=== PATIENT | male | born 1975 | race Caucasian/White ===

== ENCOUNTER 2016-07-23 16:46 | Emergency (ER) | payer BC ==
[2016-07-23 17:41] VITALS: BP 148/70
--- NOTE | 2016-07-23 18:19 | UC ---
Throat Pain/Nasal Timothy HPI - HPI Summary HPI Summary: complaint of nasal congestion cough and fever that started yesterday muscle achiness in entire body intermittent headaches intermittent ear pain denies sore throat denies N/V/D took some dayquil and nyquil without relief - History of Current Complaint Chief Complaint: UCRespiratory Stated Complaint: COUGH,COLD,HEADACHE Time Seen by Provider: 07/23/16 18:13 Hx Obtained From: Patient - Allergies/Home Medications Allergies/Adverse Reactions: Allergies Allergy/AdvReac Type Severity Reaction Status Date / Time No Known Allergies Allergy Verified 07/23/16 17:41 Home Medications: Home Medications Chlorpheniramine-Phenylephrine [[place] Plus Cold] 1 tab PO PRN 07/23/16 [ History] PMH/Surg Hx/FS Hx/Imm Hx Previously Healthy: Yes Endocrine History Of: Reports: Diabetes Denies: Thyroid Disease Cardiovascular History Of: Reports: Hypertension Denies: Cardiac Disorders Respiratory History Of: Reports: Asthma Denies: COPD GI/ History Of: Denies: Ulcer - Surgical History Surgical History: Yes Surgery Procedure, Year, and Place: Left Knee - Family History Known Family History: Negative: Cardiac Disease, Hypertension, Diabetes - Social History Occupation: Employed Full-time Lives: With Family Alcohol Use: Occasionally Substance Use Type: None Smoking Status (MU): Current Some Day Smoker Type: Cigarettes Amount Used/How Often: 1-1.5 PPD Length of Time of Smoking/Using Tobacco: 10 years Have You Smoked in the Last Year: Yes When Did the Patient Quit Smoking/Using Tobacco: 2 months Cessation Counseling: Patient Advised to Stop Review of Systems Constitutional: Fever Skin: Negative Eyes: Negative ENT: Ear Ache, Nasal Discharge Respiratory: Cough Cardiovascular: Negative Gastrointestinal: Negative Genitourinary: Negative Motor: Negative Neurovascular: Negative Musculoskeletal: Myalgia Neurological: Headache Psychological: Negative All Other Systems Reviewed And Are Negative: Yes Physical Exam Triage Information Reviewed: Yes Appearance: No Pain Distress, Well-Nourished, Ill-Appearing, Obese Vital Signs: Initial Vital Signs Temp 101.3 F 07/23/16 17:38 Pulse 115 07/23/16 17:38 Resp 20 07/23/16 17:38 BP 148/70 07/23/16 17:38 Pulse Ox 96 07/23/16 17:38 Vital Signs Reviewed: Yes Eyes: Positive: Conjunctiva Clear ENT: Positive: Pharyngeal erythema, Nasal congestion, Nasal drainage, TMs normal. Negative: Tonsillar swelling Neck: Positive: No Lymphadenopathy Respiratory: Positive: Lungs clear, Normal breath sounds, No respiratory distress Cardiovascular: Positive: RRR, No Murmur, Pulses Normal Abdomen Description: Positive: Nontender, No Organomegaly, Soft Bowel Sounds: Positive: Present Musculoskeletal: Positive: No Edema Neurological: Positive: Alert Psychological Exam: Normal Skin Exam: Normal Throat Pain/Nasal Course/Dx - Differential Dx/Diagnosis Differential Diagnosis/HQI/PQRI: Influenza, URI, Other - asthma exacerbation- viral illness Provider Diagnoses: influenza Discharge - Discharge Plan Condition: Stable Disposition: HOME Prescriptions: Albuterol HFA INHALER* [Ventolin HFA Inhaler*] 2 puff INH Q4H PRN #1 mdi PRN Reason: Wheezing Oseltamivir CAP* [Tamiflu CAP*] 75 mg PO BID #10 cap Patient Education Materials: Influenza (ED) Referrals: Fabian Bro MD [Primary Care Provider] - Additional Instructions: Your blood pressure is elevated. Please contact your primary care provider within 1 day -4 weeks for further evaluation. TREATING THE FLU (Influenza) What is the Flu? Influenza, or "flu," is an infection of the breathing tubes and lungs. Flu happens mostly in late fall, winter, or early spring. It is very easily spread from one person to another by coughing and sneezing. The flu affects people of all ages. Symptoms Might Include: Stuffed up or runny nose Cough which may be worse at night that lasts for one to two weeks Fever especially the first 2 days and which may go up and down Headache and muscle aches Mild sore throat Poor appetite Tiredness Influenza (Flu) Vaccine Much of the illness and caused by influenza can be prevented by annual flu vaccination. It is especially recommended for people who are at high risk. Those at higher risk include all people aged 65 years or older and people of any age with chronic diseases of the heart, lung or kidneys, diabetes, immunosuppression, or severe forms of anemia. Other high-risk groups are, women who will be more than 3 months during the flu season, and children. Treatment Recommendations: Take acetaminophen (Tylenol, etc.) for aches and fever. Do not ever give aspirin to children. Drink lots of fluids. Use a cool-mist humidifier night and day if it helps you. Keep room at a comfortable temperature for you. Do not overheat the room. Do not overdress. Do not smoke. Get as much rest as you can. Call Your Doctor or Return Here IF: You have a fever that lasts for more than three days. You have trouble breathing. You begin to cough up green, yellow, or red mucous. Your cough gets worse or you have chest pain with coughing or deep breathing. You start to have any other symptoms that worry you.
[2016-07-23] MEDS ORDERED: Acetaminophen TAB* 325 MG PO ONE (18:20)
== END 2016-07-23 19:06 | disposition home or self-care (01) ==
LOC: UCEAST 16:46
DX: J11.1 Influenza due to unidentified influenza virus with other respiratory manifestations (principal); E11.9 Type 2 diabetes mellitus without complications; I10 Essential (primary) hypertension; J45.909 Unspecified asthma, uncomplicated; Z87.891 Personal history of nicotine dependence
CPT/HCPCS: 87502; 99212; A9270-GY; G0463

== ENCOUNTER 2016-09-01 19:55 | Emergency (ER) | payer BC ==
[2016-09-01 20:51] VITALS: BP 140/95
[2016-09-01] MEDS ORDERED: Cephalexin CAP* 500 MG PO ONE (21:10)
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
== END 2016-09-01 21:23 | disposition home or self-care (01) ==
LOC: UCEAST 19:55
DX: L03.116 Cellulitis of left lower limb (principal); E11.9 Type 2 diabetes mellitus without complications; I10 Essential (primary) hypertension; J45.909 Unspecified asthma, uncomplicated; Z72.0 Tobacco use
CPT/HCPCS: 87070; 87077; 87186; 87205; 99212; A9270-GY; G0463

== ENCOUNTER 2017-05-25 13:29 | Emergency (ER) | payer BC ==
[2017-05-25 14:12] VITALS: BP 141/96
--- NOTE | 2017-05-25 14:19 | UC ---
Respiratory Complaint HPI - HPI Summary HPI Summary: Pt presents with 1 week of sinus pain/pressure/congestion, post nasal drip, sore throat, and dry persistent cough. Also says he feels feverish and warm, but has not taken his temperature. He has been taking OTC cold and flu medicine with no relief. Tells me that his just had a pacemaker inserted and he doesn't want to be sick around her. Denies chills, SOB, chest pain, abdominal pain, n/v/d/c. - History of Current Complaint Hx Obtained From: Patient Onset/Duration: Gradual Onset Timing: Constant Severity Initially: Mild Severity Currently: Mild Pain Intensity: 2 Pain Scale Used: 0-10 Numeric Character: Cough: Nonproductive <Armin Acosta - Last Filed: 05/25/17 14:31> <Angela Dawson - Last Filed: 05/26/17 13:08> - History of Current Complaint Chief Complaint: UCGeneralIllness Stated Complaint: RESP ISSUE COUGH Time Seen by Provider: 05/25/17 14:19 - Allergies/Home Medications Allergies/Adverse Reactions: Allergies Allergy/AdvReac Type Severity Reaction Status Date / Time No Known Allergies Allergy Verified 05/25/17 14:03 PMH/Surg Hx/FS Hx/Imm Hx Endocrine History: Diabetes Cardiovascular History: Hypertension - Surgical History Surgical History: Yes Surgery Procedure, Year, and Place: Left Knee arthroscopy - Family History Known Family History: Negative: Cardiac Disease, Hypertension, Diabetes - Social History Occupation: Employed Full-time Lives: With Family Alcohol Use: Occasionally Substance Use Type: None Smoking Status (MU): Former Smoker Type: Cigarettes Amount Used/How Often: 1-1.5 PPD Length of Time of Smoking/Using Tobacco: 10 years Have You Smoked in the Last Year: Yes When Did the Patient Quit Smoking/Using Tobacco: 2 months <Armin Acosta - Last Filed: 05/25/17 14:31> Review of Systems Constitutional: Fever Skin: Negative Eyes: Negative ENT: Sore Throat, Nasal Discharge, Sinus Congestion, Sinus Pain/Tenderness Respiratory: Cough Cardiovascular: Negative Gastrointestinal: Negative Genitourinary: Negative Neurological: Negative Psychological: Negative All Other Systems Reviewed And Are Negative: Yes <Armin Acosta - Last Filed: 05/25/17 14:31> Physical Exam Triage Information Reviewed: Yes Appearance: Well-Appearing, No Pain Distress, Obese Vital Signs: Initial Vital Signs Temp 98.8 F 05/25/17 14:06 Pulse 103 05/25/17 14:06 Resp 16 05/25/17 14:06 BP 141/96 05/25/17 14:06 Pulse Ox 98 05/25/17 14:06 Vital Signs Reviewed: Yes Eyes: Positive: Conjunctiva Clear. Negative: Conjunctiva Inflamed, Discharge ENT: Positive: Hearing grossly normal, Pharynx normal, Nasal congestion, Nasal drainage, TMs normal, Sinus tenderness, Uvula midline. Negative: Pharyngeal erythema, TM bulging, TM dull, TM red, Tonsillar swelling, Tonsillar exudate, Hoarse voice Neck: Positive: Supple, No Lymphadenopathy, Other: - Mildly tender anterior Respiratory: Positive: Lungs clear, Normal breath sounds, No respiratory distress, No accessory muscle use Cardiovascular: Positive: RRR, No Murmur, Pulses Normal Neurological: Positive: Alert Psychological: Positive: Age Appropriate Behavior Skin: Negative: rashes <Armin Acosta - Last Filed: 05/25/17 14:31> Vital Signs: Initial Vital Signs Temp 98.8 F 05/25/17 14:06 Pulse 103 05/25/17 14:06 Resp 16 05/25/17 14:06 BP 141/96 05/25/17 14:06 Pulse Ox 98 05/25/17 14:06 <Angela Dawson - Last Filed: 05/26/17 13:08> Diagnostic Evaluation - Laboratory O2 Sat by Pulse Oximetry: 98 <Armin Acosta - Last Filed: 05/25/17 14:31> Respiratory Course/Dx - Course Course Of Treatment: Sinusitis. Bronchitis - Differential Dx/Diagnosis Provider Diagnoses: Sinusitis. Bronchitis <Armin Acosta - Last Filed: 05/25/17 14:31> Discharge <Armin Acosta - Last Filed: 05/25/17 14:31> <Angela Dawson - Last Filed: 05/26/17 13:08> - Discharge Plan Condition: Stable Disposition: HOME Prescriptions: Azithromycin TAB* [Zithromax TAB (Z-ARYA) 250 mg #6 tabs] 2 tab PO .TODAY, THEN 1 DAILY #1 arya Benzonatate CAP* [Tessalon 100 MG CAP*] 100 mg PO TID PRN #15 cap PRN Reason: Cough Patient Education Materials: Sinusitis (ED) Forms: *Work Release Referrals: Fabian Bro MD [Primary Care Provider] - Additional Instructions: If you develop a fever, shortness of breath, chest pain, new or worsening symptoms - please call your PCP or go to the ED. Your blood pressure was high at todays visit. Please see your primary provider within 4 weeks for recheck and re-evaluation. Attestation Statement User Type: Provider - I was available for consult. This patient was seen by the GEO. The patient was not presented to, seen by, or examined by me. Sulaiman <Angela Dawson - Last Filed: 05/26/17 13:08>
== END 2017-05-25 14:34 | disposition home or self-care (01) ==
LOC: UCEAST 13:29
DX: J32.9 Chronic sinusitis, unspecified (principal); J40 Bronchitis, not specified as acute or chronic; Z87.891 Personal history of nicotine dependence
CPT/HCPCS: 99212; G0463

== ENCOUNTER 2019-01-08 16:32 | Emergency (ER) | payer BC ==
[2019-01-08 17:10] VITALS: BP 158/102
--- NOTE | 2019-01-08 17:11 | UC ---
Throat Pain/Nasal Timothy HPI - HPI Summary HPI Summary: Patient is a 43yo male presenting with upper respiratory symptoms x4 days. Notes sinus congestion, PND, and cough. Cough is nonproductive. States that he is coughing so much he believes he "popped a rib." Insists on no xrays though, as he "cannot afford it." Patient notes wheezing but no SOB. Denies n/v/d. Denies headache, fever, and chills. He has taken OTC cough medications without relief. - History of Current Complaint Stated Complaint: URI Hx Obtained From: Patient Onset/Duration: Gradual Onset, Lasting Days Severity: Severe Pain Intensity: 10 Pain Scale Used: 0-10 Numeric Cough: Nonproductive Associated Signs & Symptoms: Positive: Wheezing, Nasal Discharge. Negative: Sinus Discomfort, Fever, Vomiting - Allergies/Home Medications Allergies/Adverse Reactions: Allergies Allergy/AdvReac Type Severity Reaction Status Date / Time No Known Allergies Allergy Verified 01/08/19 17:06 Home Medications: Home Medications Fluticasone NASAL SPRAY 50MCG* [Flonase NASAL SPRAY 50MCG*] 2 spray BOTH NARES DAILY 01/08/19 [History Confirmed 01/08/19] Oxymetazoline 0.05% NASAL SPR* [Afrin 0.05% NASAL SPRAY*] 1 spray NASAL Q12H PRN 01/08/19 [History Confirmed 01/08/19] PMH/Surg Hx/FS Hx/Imm Hx Endocrine History: Diabetes Cardiovascular History: Hypertension - Surgical History Surgical History: Yes Surgery Procedure, Year, and Place: Left Knee arthroscopy - Family History Known Family History: Negative: Cardiac Disease, Hypertension, Diabetes - Social History Alcohol Use: Occasionally Substance Use Type: None Smoking Status (MU): Current Some Day Smoker Type: Cigarettes Amount Used/How Often: 1 cig 2x/week Length of Time of Smoking/Using Tobacco: 10 years Have You Smoked in the Last Year: Yes When Did the Patient Quit Smoking/Using Tobacco: 2 months Review of Systems All Other Systems Reviewed And Are Negative: Yes Constitutional: Negative: Fever, Chills Skin: Positive: Negative Eyes: Positive: Negative ENT: Positive: Sore Throat, Nasal Discharge, Sinus Congestion. Negative: Ear Ache, Sinus Pain/Tenderness Respiratory: Positive: Cough. Negative: Shortness Of Breath Cardiovascular: Positive: Negative Gastrointestinal: Positive: Negative. Negative: Abdominal Pain, Vomiting, Diarrhea, Nausea Motor: Negative: Weakness Musculoskeletal: Negative: Myalgia Neurological: Negative: Headache Psychological: Positive: Negative Physical Exam Triage Information Reviewed: Yes Appearance: Well-Appearing, No Pain Distress, Well-Nourished Vital Signs: Initial Vital Signs Temp 98.9 F 01/08/19 17:07 Pulse 98 01/08/19 17:07 Resp 18 01/08/19 17:07 BP 158/102 01/08/19 17:07 Pulse Ox 96 01/08/19 17:07 Vital Signs Reviewed: Yes Eyes: Positive: Conjunctiva Clear. Negative: Discharge ENT: Positive: Hearing grossly normal, Pharyngeal erythema, Nasal drainage, TMs normal, Uvula midline. Negative: Nasal congestion, TM bulging, Tonsillar swelling, Tonsillar exudate, Sinus tenderness Neck exam: Normal Neck: Positive: Supple, Nontender, No Lymphadenopathy Respiratory: Positive: No respiratory distress, No accessory muscle use, Wheezing - mild expiratory wheezing noted of LLL. Negative: Respiratory distress, Decreased breath sounds, Crackles, Rhonchi, Stridor Cardiovascular Exam: Normal Cardiovascular: Positive: RRR. Negative: Tachycardia Neurological: Positive: Alert Psychological: Positive: Age Appropriate Behavior Throat Pain/Nasal Course/Dx - Course Course Of Treatment: Discussed with patient his elevated blood pressure today. 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 I stressed the importance of him doing so and he voiced understanding. The patient was concerned for a fractured rib but when offered an xray he refused because he does not want to pay for it. Patient agreed to try an inhaler to help relieve his respiratory symptoms. I discussed the likely viral etiology of his symptoms and told him he may continue to take OTC cough and cold medications as directed for symptomatic relief. Patient instructed to get plenty of rest and fluids. I also instructed the patient to return or follow up if his symptoms persist or worsen. Patient voiced understanding and agreed to the treatment plan. - Differential Dx/Diagnosis Provider Diagnosis: Upper respiratory infection, Acute bronchitis Discharge ED - Sign-Out/Discharge Documenting (check all that apply): Patient Departure All imaging exams completed and their final reports reviewed: No Studies - Discharge Plan Condition: Stable Disposition: HOME Prescriptions: Albuterol HFA INHALER* [Ventolin HFA Inhaler*] 1 - 2 puff INH Q6H PRN #1 mdi PRN Reason: Wheezing Patient Education Materials: Upper Respiratory Infection (ED), Acute Bronchitis (ED) Forms: *Work Release Referrals: Fabian Bro MD [Primary Care Provider] - If Needed Additional Instructions: As discussed, use the inhaler as prescribed to help alleviate your wheezing. You may continue to take over the counter cough and cold medications for your cold symptoms. You may use nasal saline spray as directed for symptomatic relief. You may take ibuprofen as directed for pain relief. Get plenty of rest and fluids. Return or follow up with your primary care doctor if your symptoms worsen or do not resolve within 7 days. - Billing Disposition and Condition Condition: STABLE Disposition: Home
== END 2019-01-08 17:40 | disposition home or self-care (01) ==
LOC: UCEAST 16:32
DX: J06.9 Acute upper respiratory infection, unspecified (principal); J20.9 Acute bronchitis, unspecified; I10 Essential (primary) hypertension; E11.9 Type 2 diabetes mellitus without complications; F17.210 Nicotine dependence, cigarettes, uncomplicated
CPT/HCPCS: 99212; G0463

== ENCOUNTER 2019-06-16 15:30 | Emergency (ER) | payer BC ==
[2019-06-16 15:57] VITALS: BP 147/98
--- NOTE | 2019-06-16 16:19 | UC ---
Lower Extremity/Ankle HPI - HPI Summary HPI Summary: patient has had R hip and lower back pain for 3 weeks, no fall or known injury. has been trying ibuprofen 800mg bid with some relief. worse if lifting leg or walking, better if lying flat or riding in truck. denies urinary or bowel incontinence - History of Current Complaint Chief Complaint: UCLowerExtremity Stated Complaint: HIP PAIN Time Seen by Provider: 06/16/19 16:01 Hx Obtained From: Patient Onset/Duration: Gradual Onset Severity Initially: Moderate Severity Currently: Severe Pain Intensity: 10 Aggravating Factor(s): Standing, Ambulation Alleviating Factor(s): Rest, OTC Meds - ibuprofen Able to Bear Weight: Yes - Allergies/Home Medications Allergies/Adverse Reactions: Allergies Allergy/AdvReac Type Severity Reaction Status Date / Time No Known Allergies Allergy Verified 06/16/19 15:49 Home Medications: Home Medications Atenolol TAB* [Tenormin TAB* 25 MG] 25 mg PO DAILY 06/25/14 [History Confirmed 06/16/19] Lisinopril TAB* [Prinivil TAB 10 MG*] 20 mg PO DAILY 06/25/14 [History Confirmed 06/16/19] metFORMIN* [Glucophage 500 MG TAB *] 1,000 tab PO BID 06/25/14 [History Confirmed 06/16/19] Albuterol HFA INHALER* [Ventolin HFA Inhaler*] 1 - 2 puff INH Q6H PRN #1 mdi [Rx Confirmed 06/16/19] Cyclobenzaprine TAB* [Flexeril 10 MG TAB*] 10 mg PO TID PRN #12 tab 06/16/19 [Rx ] Ibuprofen 800 mg PO TID #30 tablet 06/16/19 [Rx] glipiZIDE TAB* [Glucotrol TAB*] 5 mg PO DAILY 06/16/19 [History Confirmed ] PMH/Surg Hx/FS Hx/Imm Hx Previously Healthy: Yes Endocrine History: Diabetes Cardiovascular History: Hypertension - Surgical History Surgical History: Yes Surgery Procedure, Year, and Place: Left Knee arthroscopy - Family History Known Family History: Negative: Cardiac Disease, Hypertension, Diabetes - Social History Occupation: Employed Full-time Lives: With Family Alcohol Use: Weekly Alcohol Amount: 5/week Substance Use Type: None Smoking Status (MU): Heavy Every Day Tobacco Smoker Type: Cigarettes Amount Used/How Often: 1 cig 2x/week Length of Time of Smoking/Using Tobacco: 10 years Have You Smoked in the Last Year: Yes When Did the Patient Quit Smoking/Using Tobacco: 2 months Cessation Counseling: Patient Advised to Stop Review of Systems All Other Systems Reviewed And Are Negative: Yes Constitutional: Positive: Negative. Negative: Fever Skin: Positive: Negative. Negative: Rash Respiratory: Positive: Negative Cardiovascular: Positive: Negative Motor: Positive: Negative. Negative: Decreased ROM, Weakness Neurovascular: Positive: Other - no numbness Musculoskeletal: Positive: Other: - R hip and low back pain Neurological/Mental Status: Positive: Negative Psychological: Positive: Negative Is Patient Immunocompromised?: No Physical Exam Triage Information Reviewed: Yes Appearance: Well-Appearing, No Pain Distress, Obese Vital Signs: Initial Vital Signs Temp 97.9 F 06/16/19 15:48 Pulse 99 06/16/19 15:48 Resp 16 06/16/19 15:48 BP 147/98 06/16/19 15:48 Pulse Ox 99 06/16/19 15:48 Vital Signs Reviewed: Yes Neck exam: Normal Respiratory Exam: Normal Respiratory: Positive: Lungs clear Cardiovascular Exam: Normal Cardiovascular: Positive: RRR Musculoskeletal: Positive: Strength Intact, ROM Intact, Other: - point tenderness R trochanteric bursa - no redness or swelling, pain with hip abduction also point tenderness R lower back - SI joint. Neurological Exam: Normal Neurological: Positive: Alert Psychological Exam: Normal Skin Exam: Normal Skin: Negative: Rashes Lower Extremity Course/Dx - Differential Dx/Diagnosis Differential Diagnosis/HQI/PQRI: Bursitis, Contusion, Fracture (Closed), Sprain , Strain Provider Diagnosis: Low back pain, Trochanteric bursitis of right hip Discharge ED - Sign-Out/Discharge Documenting (check all that apply): Patient Departure All imaging exams completed and their final reports reviewed: No Studies - Discharge Plan Condition: Good Disposition: HOME Prescriptions: Cyclobenzaprine TAB* [Flexeril 10 MG TAB*] 10 mg PO TID PRN #12 tab PRN Reason: Spasms - Back Ibuprofen 800 mg PO TID #30 tablet Patient Education Materials: Low Back Strain (ED), Hip Bursitis (ED) Referrals: Fabian Bro MD [Primary Care Provider] - 4 Days (if no better and for blood pressure recheck) Additional Instructions: use muscle relaxer and ibuprofen as directed apply warm pad to lower back do gentle range of motion exercises twice a day - Billing Disposition and Condition Condition: GOOD Disposition: Home
== END 2019-06-16 16:34 | disposition home or self-care (01) ==
LOC: UCEAST 15:30
DX: M54.5 Low back pain (principal); M70.61 Trochanteric bursitis, right hip; E11.9 Type 2 diabetes mellitus without complications; I10 Essential (primary) hypertension; F17.210 Nicotine dependence, cigarettes, uncomplicated; Z79.84 Long term (current) use of oral hypoglycemic drugs; Z79.899 Other long term (current) drug therapy
CPT/HCPCS: 99212; G0463